=== PATIENT | female | born 1955 | race Caucasian/White ===

== ENCOUNTER 2017-06-27 18:13 | Emergency (ER) | payer OTHER ==
[2017-06-27] MEDS: IBUPROFEN 600 MG TAB PO (22:26)
[2017-06-27] MEDS: HYDROCODONE/APAP (5/325) TAB PO (22:26)
== END 2017-06-28 00:11 | disposition home or self-care (01) ==
LOC: FTE 06-28 00:11
DX: M25.561 Pain in right knee (principal)
CPT/HCPCS: 73562; 99283